=== PATIENT | female | born 1935 | race Caucasian/White ===

== ENCOUNTER 2017-08-26 12:49 | Emergency (ER) | payer MEDICARE, MEDICAID, SELFPAY ==
[2017-08-26 12:50] VITALS: BP 94/57; PULSE 92; RESP 14; TEMP 36.9; O2SAT 96; BMI 17.4
--- NOTE | 2017-08-26 13:06 | CT_ITS ---
STUDY: CT BRAIN WITHOUT CONTRAST REASON FOR EXAM: Female, 82 years old. Altered mental status RADIATION DOSAGE (If Supplied By Facility): CTDIvol = ( 44.99 ) mGy, DLP = ( 762.36 ) mGycm TECHNIQUE: Transaxial CT imaging of the brain was performed without administration of intravenous contrast material. Individualized dose optimization techniques were used for this CT. COMPARISON: None. FINDINGS: No evidence for shift of midline structures, mass effect or compression of ventricles noted. No acute intra-axial or extra-axial hemorrhage is seen. No abnormal intracranial fluid collections identified. Asymmetric low-attenuation in the left periventricular and subcortical white matter which are nonspecific in imaging appearance however likely related with chronic small vessel disease or asymmetric narrowing of the carotid artery. Chronic right cerebellar infarct. Chronic small vessel disease. No intra or extra-axial hemorrhage. Mild ventriculomegaly with cerebral fine loss. Vascular calcifications. Opacification of the left sphenoid sinus. Mucoperiosteal thickening of the maxillary sinuses as well as the ethmoid vessels also seen. Findings likely related with chronic sinusitis. IMPRESSION: No evidence for acute intracranial hemorrhage, mass effect or acute large territory infarcts. Chronic small vessel disease. Chronic right cerebellar infarct Electronically Signed: Yehuda Adams, at 14:40 EDT Tel , Service support , CT/Brain/Head without Contrast
--- NOTE | 2017-08-26 13:06 | EKG12_ITS ---
Test Reason : NEURO SX Blood Pressure : / mmHG Vent. Rate : 078 BPM Atrial Rate : 080 BPM P-R Int : 000 ms QRS Dur : 068 ms QT Int : 380 ms P-R-T Axes : 000 001 030 degrees QTc Int : 433 ms Atrial fibrillation with premature ventricular or aberrantly conducted complexes Low voltage QRS (LIMB LEADS) Poor R wave progression Abnormal ECG Confirmed by LADY BLOUNT, JOEL ([id number]), supervising film or videotape editor TIERRA MALDONADO ([id number]) on 08/28/2017 2:58:51 PM Referred By: JOSE ALBERTO Confirmed By:JOEL NARAYANAN MD
--- NOTE | 2017-08-26 13:10 | RAD_ITS ---
STUDY: X-RAY CHEST REASON FOR EXAM: Female, 82 years old. Shortness of breath TECHNIQUE: Single view of the chest was obtained COMPARISON: None. FINDINGS: No lung consolidation or pneumothorax. Cardiac size is enlarged. Mild bilateral perihilar streaky opacities with hilar enlargement noted may relate with pulmonary edema. No definite pneumothorax. Subtle airspace disease in the left lower lobe retrocardiac region suspected. Tracheobronchial calcifications. Calcifications of the aortic knob. IMPRESSION: Cardiomegaly with bilateral pulmonary vascular congestion and airspace opacities in the left lower lobe retrocardiac region. Subtle nodular appearing airspace opacities in the right lower lobe also seen. Electronically Signed: Yehuda Adams, at 13:24 EDT Tel , Service support , RAD/Chest 1 View (Portable)
--- NOTE | 2017-08-26 13:41 | ED.DCSUM_ITS ---
- ER Visit Summary Date of Service: 08/26/17 Chief Complaint: [] Difficulty with speech while visiting with family History of Present Illness: The patient is a 82 F [] history of stroke this past February the cause a fascia to where she has trouble generally verbalizing any type speech pattern, she was walking around apparently what sounds like a garden when she could not speak to her family she states that her down the symptoms resolved and they recurred and she was brought to the emergency department. The inability to speak lasted for a very short period of time, the family did not notice anything else except may be some facial droop on the left , but the patient has no complaints her speech is back to her baseline where basically she struggles to verbalize she does make sounds and if you listen closely can understand part of what she says and that is her baseline the patient denies headache chest pain abdominal pain #6 paresthesias the patient was not cognizant of this inability to verbalize at this time she has no complaints her health status has been stable recently Physical Examination: [] Her blood pressures about 100/80 she is in no distress she is looking about her speech again she is able to verbalize she makes words her speech is garbled with close understand you can hear her say her name this is her baseline there is no airway compromise stridor or drooling cranial nerves appear otherwise intact her neck is supple the lungs are clear the heart tones are normal the abdomen soft nontender she has full range of motion of all 4 extremities normal strength her NIH would be limited only because of the dense a fascia that she has above but otherwise no new abnormalities Test Results: [] Emergency Department Course and Treatment: [] CT labs these are generally unremarkable nothing acute see those full reports the chest x-ray shows what appears to be pulmonary congestion versus some atelectasis versus pneumonia, the white count 13,000 she remains awake and alert she indicates she is not short of breath she is not coughing the family reports she has chronic pulmonary conditions that sometimes makes her breathe heavy but they have not noticed any signs of pneumonia the family asked her directly if she felt ill if she wanted to be been to the hospital if she felt like she was short of breath she denied all that saying she wanted to go back to the nursing center she did not wish to be admitted I we explained the concept of an occult process that was unidentifiable at this point time the family understood the home nurses watch her and have her return for change in symptoms I will prescribe her Levaquin antibiotic as a [id number] prescription to be started should she develop any pulmonary symptoms of any kind but otherwise he will follow up with the physicians at the nursing center Treatment Plan: [] Disposition: [] Home stable patient declined admission Impression: [] Transient difficulty speaking resolved history of TIA, and chronic lung condition unspecified This note was generated with [employer] dictation software. It may contain incorrect words, spelling, and punctuation that were not noted in review of the chart prior to signing ED Disposition - Plan for ED Patient: Chief Complaint: Neuro S/Sx Referrals: Lanre Rodriguez [Primary Care Provider] -
[2017-08-26 13:50] LABS: Absolute Lymphocyte Count 1.85 X10^3/ul (0.83-4.51); Absolute Neutrophil Count 9.3 X10^3/uL (2.0-7.7); Basophil# 0.07 X10^3/uL; Basophil% 0.5 % (0-1); Eosinophil# 0.71 X10^3/uL; Eosinophils% 5.4 % (0-5); Hematocrit 33.9 % (37-47); Hemoglobin 10.8 g/dl (12.0-15.0); Lymphocyte # 1.85 X10^3/ul (4.0); Mean Corp Hgb Conc 31.9 g/gl (32-36); Mean Corpuscular Hgb 31.6 pg (27.0-32.0); Mean Corpuscular Volume 99.1 fL (81-99); Monocyte# 1.28 X10^3/uL; Monocyte% 9.7 % (0-10); Neutrophil # 9.25 X10^3/uL (2.7-7.7); Neutrophil % 69.9 % (47-70); POSITIVE COUNT NO; POSITIVE DIFFERENTIAL NO; POSITIVE MORPHOLOGY NO; Platelet Count 230 K/mm3 (150-450); RBC Distribution Width CV 14.7 % (11.6-14.6); Red Blood Count 3.42 M/mm3 (4.2-5.4); White Blood Count 13.2 K/mm3 (4.4-11.0)
[2017-08-26 13:58] VITALS: BP 97/70; PULSE 79; RESP 18; O2SAT 97
--- NOTE | 2017-08-26 13:58 | ED.RN ---
PER SON HAD DROOLING AND UNABLE TO TALK 2 EPISODES TODAY. RESOLVED PRIOR TO ARRIVAL. PT IS BASELINE ON ARRIVAL.
[2017-08-26 14:04] LABS: AST(SGOT) 20 U/L (15-37); Alanine Aminotransfer ALT/SGPT 9 U/L (13-56); Alkaline Phosphatase 100 U/L (45-117); Anion Gap 6 (5-15); BUN 16 mg/dL (7-18); BUN/Creat Ratio 13.4 RATIO (10-20); Bilirubin, Direct 0.08 mg/dL (0.00-0.30); Calcium,Total 9.7 mg/dL (8.5-10.1); Chloride 107 mmol/L (98-107); Creatinine, Serum 1.19 mg/dL (0.55-1.02); EST Glomerular Filtration Rate 46 mL/min (>60); Est Glom Filt Rate - Afr Amer 56 mL/min (>60); Estimated Creatinine Clearance 24.95 ml/min; Globulin 3.6 g/dL (2.2-4.2); Glucose 100 mg/dL (74-106); Lipase 125 U/L (73-393); Potassium 4.7 mmol/L (3.5-5.1); Protein, Total 6.6 g/dL (6.4-8.2); Sodium Level 139 mmol/L (136-145)
[2017-08-26 15:22] LABS: Mucous, Urine 0 SEEN /hpf (<or=2+); Red Blood Cells-Urine 0 SEEN /hpf (0-5); Squamous Epithelial Cells - UA 0 SEEN /hpf (5-10)
[2017-08-26 15:23] VITALS: BP 88/50; PULSE 82; RESP 18; O2SAT 96
[2017-08-26 15:27] LABS: Color, Urine Yellow (Yellow); Glucose, Dipstick Normal (Normal); Ketone-Dipstick Negative (Negative); Leukocyte Esterase-Dipstick 25 /ul (Negative); Nitrite-Dipstick Negative (Negative); Occult Blood-Urine Negative /ul (Negative); Protein-Dipstick Negative (Negative); Urine Bilirubin Dipstick Negative (Negative); Urine Clarity Clear (Clear); Urine Urobilinogen Normal (Normal); Urine pH 6.5 (5.0 - 8.0)
[2017-08-26 15:34] LABS: Bacteria 4+ /hpf (None Seen); White Blood Cells 0-5 SEEN /hpf (0-5)
[2017-08-26 16:03] VITALS: BP 108/71; PULSE 78; RESP 20; O2SAT 93
--- NOTE | 2017-08-26 16:15 | ED.DEP ---
ED Disposition - Plan for ED Patient: Chief Complaint: Neuro S/Sx Instructions: ED Transient Ischemic Attack Prescriptions: Albuterol Inhaler [Ventolin Hfa] 1 - 2 puff INHALATION Q4H PRN PRN #1 inhaler PRN Reason: Wheezing levoFLOXacin tablet [Levaquin] 500 mg PO DAILY #7 tab Referrals: Lanre Rodriguez [Primary Care Provider] -
[2017-08-26 16:37] VITALS: PULSE 75; RESP 18
[2017-08-26] MEDS: Ipratropium/Albuterol Sulfate 3 ML AMPUL.NEB INHALATION (16:37)
[2017-08-26 17:05] VITALS: BP 114/79; PULSE 76; RESP 18; TEMP 36.2; O2SAT 97
== END 2017-08-26 17:06 | disposition home or self-care (01) ==
PROVIDERS: Emergency Provider Emergency Medicine; Family Provider Family Medicine; PCP Family Medicine
DX: F80.9 Developmental disorder of speech and language, unspecified (principal); Z86.73 Personal history of transient ischemic attack (TIA), and cerebral infarction without residual deficits
CPT/HCPCS: 70450; 71045; 80048; 80076; 81001; 83690; 84484; 85025; 93005; 94640; 99284; J7030; J7040; P9612; A4216

== ENCOUNTER → 2020-10-18 05:00 | Outpatient (REF) | payer MEDICARE, MEDICAID, SELFPAY ==
[2020-10-18 09:29] LABS: International Normalized Ratio 2.2; Prothrombin Time (Protime)PT. 23.3 SECONDS (11.7-14.9)
== END ==
LOC: OLS.SWAL 05:00
PROVIDERS: PCP Family Medicine
DX: I48.91 Unspecified atrial fibrillation (principal)
CPT/HCPCS: 36415; 85610

== ENCOUNTER → 2020-10-19 16:25 | Outpatient (CLI) | payer MEDICARE, MEDICAID, SELFPAY ==
--- NOTE | 2020-10-19 16:45 | US_ITS ---
STUDY: Soft tissue neck ULTRASOUND REASON FOR EXAM: Female, 85 years old. R SIDE SUBMANDIBULAR SWELLING TECHNIQUE: Ultrasound evaluation of the soft tissue neck was performed with real-time and static roman-scale imaging. COMPARISON: None. FINDINGS: Multiple longitudinal and transverse ultrasound images of the submandibular glands were obtained. Next Examination the right submandibular gland demonstrates normal size, morphology, and echogenicity without focal mass. However, just superior to the right submandibular gland there is a 1.9 cm echogenic focus with posterior shadowing which may resent calcification. Examination left submandibular gland which is normal size morphology and echogenicity. US/Head/Neck Soft Tissue IMPRESSION: Suspect calcification superior to the right submandibular gland corresponding to the patient''s palpable abnormality. Correlation with CT with contrast is recommended to Electronically Signed: Kranthi Vargas MD at 8:11 EDT Tel , Service support ,
== END ==
PROVIDERS: PCP Nurse Practitioner Primary Care; Referring Provider Nurse Practitioner Primary Care; Visit Provider Nurse Practitioner Primary Care
DX: R22.0 Localized swelling, mass and lump, head (principal)
CPT/HCPCS: 76536

== ENCOUNTER → 2020-11-16 04:00 | Outpatient (REF) | payer MEDICARE, MEDICAID, SELFPAY ==
[2020-11-16 07:36] LABS: INR Fingerstick 2.1; Prothrombin Time Fingerstick 24.4 SEC (11.9-14.4)
== END ==
LOC: OLS.SWAL 04:00
PROVIDERS: PCP Nurse Practitioner Primary Care
DX: I48.91 Unspecified atrial fibrillation (principal)
CPT/HCPCS: 36416; 85610

== ENCOUNTER → 2020-12-14 05:00 | Outpatient (REF) | payer MEDICARE, MEDICAID, SELFPAY ==
[2020-12-14 07:15] LABS: INR Fingerstick 2.1; Prothrombin Time Fingerstick 24.4 SEC (11.9-14.4)
== END ==
LOC: OLS.SWAL 05:00
PROVIDERS: PCP Nurse Practitioner Primary Care
DX: I48.91 Unspecified atrial fibrillation (principal)
CPT/HCPCS: 36416; 85610

== ENCOUNTER 2021-01-05 16:32 | Emergency (ER) | payer MEDICARE, MEDICAID, SELFPAY ==
[2021-01-05 16:41] VITALS: BP 94/57; PULSE 90; RESP 16; TEMP 37.1; O2SAT 97; BMI 19.5
[2021-01-05 16:44] VITALS: BP 103/50; PULSE 89; RESP 16; TEMP 37.1; O2SAT 98
[2021-01-05 16:45] VITALS: BP 103/50; PULSE 89; RESP 16; TEMP 37.1; O2SAT 98
--- NOTE | 2021-01-05 17:12 | EKG12_ITS ---
Test Reason : Blood Pressure : / mmHG Vent. Rate : 085 BPM Atrial Rate : 115 BPM P-R Int : 000 ms QRS Dur : 068 ms QT Int : 378 ms P-R-T Axes : 000 021 054 degrees QTc Int : 449 ms Atrial fibrillation Low voltage QRS (Limb Leads) Septal infarct , age undetermined Abnormal ECG Confirmed by LADY BLOUNT, JOEL ([id number]), fan mail editor DEA MARTINEZ ([id number]) on 01/10/2021 10:19:41 AM Referred By: NICKI Confirmed By:JOEL NARAYANAN MD
--- NOTE | 2021-01-05 17:12 | CT_ITS ---
STUDY: CT SOFT TISSUE NECK WITH CONTRAST REASON FOR EXAM: Female, 85 years old. Pain. Swelling of the right jaw. Patient on antibiotics. RADIATION DOSAGE (If Supplied By Facility): CTDIvol = ( 9.13 ) mGy, DLP = ( 241.69 ) mGycm TECHNIQUE: The patient was scanned in a multi-detector CT scanner. High resolution transaxial imaging was performed following intravenous administration of IV 75mL Isovue-370. Sagittal and coronal images were reconstructed. Individualized dose optimization techniques were used for this CT. COMPARISON: None. FINDINGS: Normal bilateral parotid glands. Normal bilateral avionics electrical engineer spaces. Normal bilateral parapharyngeal spaces. Normal bilateral carotid spaces. Normal bilateral sublingual and submandibular glands and spaces. Mild thickening and stranding in the subcutaneous fat over the right mandibular angle. There is a comminuted fracture through the mandible in the expected position of the third molar with minimal displacement. There is no dislocation of the right TMJ. Mandible is otherwise unremarkable. Normal visualized nasopharynx. Normal retropharyngeal space. Normal perivertebral space. Normal visualized bilateral faucial tonsils. The visualized tongue, tongue base and oropharynx are normal. The visualized cervical lymph nodes (levels I-) are within normal size limits, and maintain normal morphology. There is no demonstrated solid or cystic mass lesion. There is no abnormal contrast enhancement. Normal epiglottis, bilateral vallecula and hypopharynx. The pre-epiglottic and paraglottic adipose spaces are normal. Normal visualized bilateral piriform sinuses, aryepiglottic folds, vocal cords, and arytenoid-cricoid articulations. Normal subglottic trachea. Normal bilateral lobes of the thyroid gland. Normal visualized pulmonary apices. Opacification of the sphenoid sinus. Degenerative changes cervical spine. CT/Soft Tissue Neck WITH Contrast IMPRESSION: 1. Comminuted fracture of the left mandible in the expected position of the third molar. There is associated stranding and prominence of the adjacent subcutaneous fat. This may be pathologic and related to bone infraction. 2. Otherwise normal soft tissues of the neck. N.B. : The above Results were Read Back by Barney Claros DO to Ebonie Carter MD, and understanding confirmed on 01/05/2021 19:16:27 (ET). Electronically Signed: Barney Claros DO at 19:17 EDT Tel [phone], Service support ,
--- NOTE | 2021-01-05 17:17 | EDS_ITS ---
HPI History of Present Illness Chief Complaint: Other, Pain/Inj Informant: patient and family Narrative Narrative: Patient is an 85-year-old female with history of atrial fibrillation, hypothyroid, hyperlipidemia, stroke with subsequent aphasia presenting with swel ling and infection of her right lower jaw. Patient's been having ongoing issues for the past few months and has been [place] [facility] [place] patient has been getting worse despite being on oral antibiotics and was told to come to the ER for IV antibiotics. Patient is having increased pain. Her son states normally when she is on a course of antibiotics the swelling and pain will get better but this time its not. No report of any fevers. Patient is a resident of [facility]. She had decreased oral intake today which is new. [facility] Medical History (Updated 01/06/21 @ 11:[address] Ebonie Carter, ) Anorexia Aphasia Atrial fibrillation Chest pain, unspecified CVA (cerebral vascular accident) Dysphagia Edema, unspecified Heart failure Hemiplegia affecting right dominant side HTN (hypertension) Hypothyroidism Muscle weakness (generalized) Old myocardial infarction Osteoarthritis Pure hypercholesterolemia Rheumatoid arthritis Takotsubo syndrome TIA (transient ischemic attack) Home Medications albuterol sulfate 1 - 2 puff INHALATION Q4H PRN PRN #1 inhaler 08/26/17 [Rx Last Taken Unknown] aspirin [Adult Aspirin Regimen] 81 mg PO DAILY 08/26/17 [History Last Taken Unknown] atorvastatin 40 mg PO QHS 08/26/17 [History Last Taken Unknown] folic acid 1 mg PO DAILY@0800 08/26/17 [History Last Taken Unknown] leflunomide 20 mg PO MOWEFR 08/26/17 [History Last Taken Unknown] levothyroxine 25 mcg PO DAILY 08/26/17 [History Last Taken Unknown] lisinopril 2.5 mg PO DAILY 08/26/17 [History Last Taken Unknown] methotrexate sodium 15 mg PO Q7D 08/26/17 [History Last Taken Unknown] metoprolol succinate 50 mg PO DAILY 08/26/17 [History Last Taken Unknown] mirtazapine 15 mg PO QHS 08/26/17 [History Last Taken Unknown] warfarin 4 mg PO QODAY 01/05/21 [History Last Taken Unknown] warfarin 4.5 mg PO QODAY 01/05/21 [History Last Taken Unknown] Allergy/AdvReac Type Severity Reaction Status Date / Time amiodarone Allergy Unknown Verified 01/05/21 16:55 Social History Smoking Status: Never smoker ROS ROS ED Constitutional Constitutional ED: Denies chills or fever(s) Eyes Eyes: Denies change in vision ENT ENT ED: Reports other Details: right jaw pain, swelling ; Denies ear pain or rhinorrhea Cardiovascular Cardiovascular: Denies chest pain or palpitations Respiratory/Chest Respiratory/Chest: Denies cough or dyspnea Gastrointestinal Gastrointestinal: Denies abdominal pain Musculoskeletal Musculoskeletal: Denies arthralgias or myalgias Integumentary Denies rash Neurologic Neurologic: Reports weakness and other Details: Chronic right-sided weakness and aphasia from prior stroke ; Denies headache(s) EXAM Physical Exam Const Vital Signs: 01/05/21 16:41 01/05/21 16:44 01/05/21 16:45 Temperature 98.7 F 98.7 F 98.7 F Temperature Source Temporal Temporal Temporal Pulse Rate 90 89 89 Respiratory Rate 16 16 16 Blood Pressure 94/57 L 103/50 L 103/50 L Blood Pressure Mean 69 67 67 Pulse Ox 97 98 98 Oxygen Delivery Method Room Air Room Air Room Air 01/05/21 17:32 01/05/21 17:44 01/05/21 20:17 Temperature 98 F 98 F 97 F L Temperature Source Temporal Temporal Temporal Pulse Rate 99 86 81 Respiratory Rate 18 16 18 Blood Pressure 118/93 H 105/59 L 104/59 L Blood Pressure Mean 101 74 74 Pulse Ox 98 99 94 Oxygen Delivery Method Room Air Room Air Positive well nourished and well developed General Appearance ED: well developed and NAD HEENT Reports TM's clear and moist mucous membranes HEENT Narrative: Multiple missing teeth. Tenderness palpation of the right mandible near where her third molar would be. There is no tooth there. There is no associated abscess appreciated. Sublingual mucosa is soft. Patient has soft tissue swelling at the angle of her mandible on the right. Uvula is midline. Negative for tenderness Tympanic Membrane ED: Yes TM's clear Eyes PERRL and EOMs intact bilaterally Neck no lymphadenopathy, supple and no JVD Chest Wall inspection of chest normal Resp normal respiratory effort and clear to auscultation bilaterally Cardio regular rate and no murmurs Rhythm: abnormal rhythm irregularly irregular GI normal to inspection, nondistended, normoactive bowel sounds Extremity normal to inspection Neuro Neuro Narrative: Patient has a weak voice and has difficulty speaking as well as right-sided weakness. Per chart review and family, all this is chronic Sensorium / Orientation: alert Psych mental status grossly normal Skin no rashes or lesions noted and no wounds MDM MDM MDM Narrative Medical decision making narrative: Patient presents with her son from assisted living for worsening swelling and pain of her right lower jaw. SHe has recurrent infection and has seen OMFS for this. Given her worsening symptoms despite oral antibiotic therapy, it was recommenced to come to the ED for further evaluation. No airway compromise on exam. Discussed with Dr. 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 Clinically patient is well appearing with no vital signs consistent with sepsis. CT of the neck with contrast shows fracture on the right mandible, in the area of pain and swelling. I suspect this is pathologic given her suspected pathology and no report of trauma. Results are discussed with Dr. Chin, who will follow up outpatient. No new intervention indicated and patient is likely not a surgical candidate for repair. As she has adequate pain control with Tylenol she will be discharged back home. She does not require IV antibiotics. Patient and Son are agreeable with this plan of care. Lab Data Attestation: I reviewed the patient's lab results. Lab results narrative: Creatinine is elevated but at patient's baseline. Supratherapeutic INR- patient instructed to follow up with PCP for recommendations and hold coumadin tonight. Suspect this is secondary to recent antibiotics. Labs: Laboratory Results - last 24 hr 01/05/21 01/05/21 01/05/21 17:20 17:20 17:20 WBC 9.8 RBC 4.08 L Hgb 12.7 Hct 41.8 MCV 102.5 H MCH 31.1 MCHC 30.4 L RDW Std Deviation 57.3 H RDW Coeff of Eliseo 15.9 H Plt Count 198 MPV 14.9 H Immature Gran % (Auto) 0.600 Neut % (Auto) 75.6 H Lymph % (Auto) 11.3 L Craven % (Auto) 10.3 H Eos % (Auto) 1.7 Baso % (Auto) 0.5 Absolute Neuts (auto) 7.4 Absolute Lymphs (auto) 1.10 Nucleated RBC % 0 PT 34.0 H INR 3.5 APTT 41.9 H Sodium 137 Potassium 4.7 Chloride 104 Carbon Dioxide 28.0 Anion Gap 5 BUN 29 H Creatinine 1.27 H Estim Creat Clear Calc 21.63 Est GFR (MDRD) Af Amer 51 L Est GFR (MDRD) Non-Af 43 L BUN/Creatinine Ratio 22.8 H Glucose 123 H Lactic Acid Calcium 9.0 Total Bilirubin 0.50 AST 33 ALT 28 Alkaline Phosphatase 105 Total Protein 7.9 Albumin 3.7 Globulin 4.2 Albumin/Globulin Ratio 0.9 01/05/21 17:20 WBC RBC Hgb Hct MCV MCH MCHC RDW Std Deviation RDW Coeff of Eliseo Plt Count MPV Immature Gran % (Auto) Neut % (Auto) Lymph % (Auto) Craven % (Auto) Eos % (Auto) Baso % (Auto) Absolute Neuts (auto) Absolute Lymphs (auto) Nucleated RBC % PT INR APTT Sodium Potassium Chloride Carbon Dioxide Anion Gap BUN Creatinine Estim Creat Clear Calc Est GFR (MDRD) Af Amer Est GFR (MDRD) Non-Af BUN/Creatinine Ratio Glucose Lactic Acid 1.7 Calcium Total Bilirubin AST ALT Alkaline Phosphatase Total Protein Albumin Globulin Albumin/Globulin Ratio Radiography Diagnostic Testing: Radiology Impression Soft Tissue Neck CT 01/05/21 17:12 IMPRESSION: 1. Comminuted fracture of the left mandible in the expected position of the third molar. There is associated stranding and prominence of the adjacent subcutaneous fat. This may be pathologic and related to bone infraction. 2. Otherwise normal soft tissues of the neck. N.B. : The above Results were Read Back by Barney Claros DO to Ebonie Carter MD, and understanding confirmed on 01/05/2021 19:16:27 (ET). Electronically Signed: Barney Claros DO at 19:17 EDT Tel [phone], Service support , ADDENDUM: 01/05/211923 IMPRESSION: 1. Comminuted fracture of the left mandible in the expected position of the third molar. There is associated stranding and prominence of the adjacent subcutaneous fat. This may be pathologic and related to bone infraction. 2. Otherwise normal soft tissues of the neck. N.B. : The above Results were Read Back by Barney Claros DO to Ebonie Carter MD, and understanding confirmed on 01/05/2021 19:16:27 (ET). Electronically Signed: Barney Claros DO at 19:17 EDT Tel [phone], Service support , ADDENDUM: 01/05/212044 IMPRESSION: 1. Comminuted fracture of the left mandible in the expected position of the third molar. There is associated stranding and prominence of the adjacent subcutaneous fat. This may be pathologic and related to bone infraction. 2. Otherwise normal soft tissues of the neck. N.B. : The above Results were Read Back by Barney Claros DO to Ebonie Carter MD, and understanding confirmed on 01/05/2021 19:16:27 (ET). Electronically Signed: Barney Claros DO at 19:17 EDT Tel [phone], Service support , ADDENDUM: 01/05/212051 IMPRESSION: 1. Comminuted fracture of the RIGHT mandible in the expected position of the third molar. There is associated stranding and prominence of the adjacent subcutaneous fat. This may be pathologic and related to bone infraction. 2. Otherwise normal soft tissues of the neck. Electronically Signed: Barney Claros DO at 20:45 EDT Tel [phone], Service support , N.B. : The above Results were Read Back by Barney Claros DO to Ebonie Carter MD, and understanding confirmed on 01/05/2021 19:16:27 (ET). Rhythm Strip Rhythm Strip: A-fib Rate: 85 Ectopy: None EKG Initial EKG: Attestation: I personally reviewed and interpreted this EKG as follows: Interpretation: Atrial Fibrillation Comments: Atrial fibrillation at a rate of 85 Normal axis Normal QRS and QTc Normal ST segments No change compared to prior EKG on 08/26/2017 except patient no longer has PVCs Discharge Plan Triage Chief Complaint: Other, Pain/Inj ED Provider: Ebonie Carter Dx/Rx/DC Orders Clinical Impression: Fracture of right side of mandibular body, Supratherapeutic INR Instructions: ED Jaw Fracture Prescriptions: No Action atorvastatin 40 MG tablet 40 mg PO QHS RF: 0 aspirin [Adult Aspirin Regimen] 81 MG tablet,delayed release (DR/EC) 81 mg PO DAILY RF: 0 leflunomide 20 MG tablet 20 mg PO MOWEFR RF: 0 folic acid 1 MG tablet 1 mg PO DAILY@0800 RF: 0 metoprolol succinate 50 MG tablet extended release 24 hr 50 mg PO DAILY RF: 0 levothyroxine 75 MCG tablet 25 mcg PO DAILY RF: 0 methotrexate sodium 2.5 MG tablet 15 mg PO Q7D RF: 0 lisinopril 5 MG tablet 2.5 mg PO DAILY RF: 0 mirtazapine 15 MG tablet 15 mg PO QHS RF: 0 albuterol sulfate 1 INHALER inhaler 1 - 2 puff INHALATION Q4H PRN PRN (Reason: Wheezing) Qty: 1 RF: 0 warfarin 4 mg Tablet 4 mg PO QODAY RF: 0 warfarin 4 mg Tablet 4.5 mg PO QODAY RF: 0 Primary Care Provider: Jose Hough Referrals: Jose Hough MD [Primary Care Provider] - Chadwick Chin DDS [STAFF PHYSICIAN] - Activity Restrictions/Additional Instructions: Continue the course of antibiotics that you are on. There is currently not any sign of infection. Your Coumadin level today is 3.5. This is slightly elevated. Hold your Coumadin tomorrow and call your doctor that manages your Coumadin for further recommendations. It looks like you have poor blood flow to your bone in your jaw which caused a fracture. This is likely was causing the swelling. Dr. Chin will call you tomorrow for further plan of care. Continue Tylenol for pain control. Disposition Disposition: Home, Self Care Discharge Date/Time: 01/05/21 20:18
[2021-01-05 17:32] VITALS: BP 118/93; PULSE 99; RESP 18; TEMP 36.6; O2SAT 98
[2021-01-05 17:44] VITALS: BP 105/59; PULSE 86; RESP 16; TEMP 36.6; O2SAT 99
[2021-01-05 17:53] LABS: Absolute Neutrophil Count 7.4 X10^3/uL (2.0-7.7); Basophil# 0.05 X10^3/uL; Basophil% 0.5 % (0-1); Eosinophil# 0.17 X10^3/uL; Eosinophils% 1.7 % (0-5); Hematocrit 41.8 % (37-47); Hemoglobin 12.7 g/dL (12.0-15.0); Lymphocyte % 11.3 % (19-41); Mean Corp Hgb Conc 30.4 g/dL (32-36); Mean Corpuscular Hgb 31.1 pg (27.0-32.0); Mean Corpuscular Volume 102.5 fL (81-99); Mean Platelet Vol. 14.9 fl (6.2-12.0); Monocyte# 1.01 X10^3/uL; Monocyte% 10.3 % (0-10); NRBC Flagged by Analyzer 0 % (0-5); Neutrophil # 7.37 X10^3/uL (2.7-7.7); Neutrophil % 75.6 % (47-70); Platelet Count 198 K/mm3 (150-450); RBC Distribution Width CV 15.9 % (11.6-14.6); RBC Distribution Width SD 57.3 fl (35.1-43.9); Red Blood Count 4.08 M/mm3 (4.2-5.4); White Blood Count 9.8 K/mm3 (4.4-11.0)
[2021-01-05 18:04] LABS: International Normalized Ratio 3.5; Partial Thromboplast Time 41.9 Seconds (24.1-36.2)
[2021-01-05 18:20] LABS: ALB/GLOB Ratio 0.9 RATIO (0.9-2.4); AST(SGOT) 33 U/L (15-37); Alanine Aminotransfer ALT/SGPT 28 U/L (13-56); Albumin, Serum 3.7 g/dL (3.2-5.0); Alkaline Phosphatase 105 U/L (45-117); Anion Gap 5 (5-15); BUN 29 mg/dL (7-18); BUN/Creat Ratio 22.8 RATIO (10-20); Chloride 104 mmol/L (98-107); Creatinine, Serum 1.27 mg/dL (0.55-1.02); EST Glomerular Filtration Rate 43 mL/min (>60); Est Glom Filt Rate - Afr Amer 51 mL/min (>60); Estimated Creatinine Clearance 21.63 ml/min; Globulin 4.2 g/dL (2.2-4.2); Glucose 123 mg/dL (74-106); Lactic Acid 1.7 mmol/L (0.4-1.9); Potassium 4.7 mmol/L (3.5-5.1); Protein, Total 7.9 g/dL (6.4-8.2); Sodium Level 137 mmol/L (136-145)
[2021-01-05 20:17] VITALS: BP 104/59; PULSE 81; RESP 18; TEMP 36.1; O2SAT 94
== END 2021-01-05 20:18 | disposition home or self-care (01) ==
PROVIDERS: Emergency Provider Emergency Medicine; PCP Family Medicine
DX: S02.601A Fracture of unspecified part of body of right mandible, initial encounter for closed fracture (principal); R79.1 Abnormal coagulation profile; I48.91 Unspecified atrial fibrillation; E03.9 Hypothyroidism, unspecified; E78.5 Hyperlipidemia, unspecified; I63.9 Cerebral infarction, unspecified; I69.320 Aphasia following cerebral infarction; I11.0 Hypertensive heart disease with heart failure; I50.9 Heart failure, unspecified; M06.9 Rheumatoid arthritis, unspecified; M19.90 Unspecified osteoarthritis, unspecified site; Z79.01 Long term (current) use of anticoagulants; Z79.899 Other long term (current) drug therapy; X58.XXXA Exposure to other specified factors, initial encounter; Y93.89 Activity, other specified; Y92.89 Other specified places as the place of occurrence of the external cause; Y99.8 Other external cause status
CPT/HCPCS: 70491; 80053; 83605; 85025; 85610; 85730; 87040; 93005; 99284; Q9967; A4216

== ENCOUNTER → 2021-01-11 05:00 | Outpatient (REF) | payer MEDICARE, MEDICAID, SELFPAY ==
[2021-01-11 06:40] LABS: INR Fingerstick 2.7; Prothrombin Time Fingerstick 29.8 SEC (11.9-14.4)
== END ==
LOC: OLS.SWAL 05:00
PROVIDERS: PCP Family Medicine; Visit Provider Family Medicine
DX: I48.91 Unspecified atrial fibrillation (principal)
CPT/HCPCS: 36416; 85610

== ENCOUNTER 2021-01-18 17:34 | Emergency (ER) | payer MEDICARE, MEDICAID, SELFPAY ==
[2021-01-18 17:37] VITALS: BP 154/84; PULSE 106; RESP 16; TEMP 36.9; O2SAT 98; BMI 18.1
--- NOTE | 2021-01-18 20:28 | EKG12_ITS ---
Test Reason : WEAKNESS Blood Pressure : / mmHG Vent. Rate : 094 BPM Atrial Rate : 100 BPM P-R Int : 000 ms QRS Dur : 070 ms QT Int : 348 ms P-R-T Axes : 000 -16 044 degrees QTc Int : 435 ms Atrial fibrillation Abnormal ECG Confirmed by LADY BLOUNT, JOEL ([id number]), technical editor DEA MARTINEZ ([id number]) on 01/24/2021 12:57:27 PM Referred By: EMILIANA Confirmed By:JOEL NARAYANAN MD
--- NOTE | 2021-01-18 20:28 | RAD_ITS ---
INDICATION: weakness EXAMINATION/TECHNIQUE: X-RAY - XR Chest 1 View COMPARISON: 08/26/2017. FINDINGS: The lungs are clear. Tortuous and calcified thoracic aorta. The heart is enlarged. No pleural effusion or pneumothorax. Degenerative changes of the thoracic spine. RAD/Chest 1 View (Portable) IMPRESSION: No acute radiographic abnormalities. Cardiomegaly. Electronically Signed: Gino Watkins MD at 21:19 EDT Tel , Service support ,
--- NOTE | 2021-01-18 20:29 | CT_ITS ---
STUDY: CT FACIAL BONES WITHOUT CONTRAST REASON FOR EXAM: Female, 85 years old. jaw pain and swelling -- mandible swelling KNOWN RIGHT JAW FX RADIATION DOSAGE (If Supplied By Facility): CTDIvol = ( 29.38 ) mGy, DLP = ( 569.49 ) mGycm TECHNIQUE: The patient was scanned in a multi detector CT scanner. Sagittal and coronal images were reconstructed. Individualized dose optimization techniques were used for this CT. COMPARISON: None. FINDINGS: An acute mildly comminuted fracture is present through the mid body and right side of the mandible with mild displacement and mild to moderate overlying soft tissue swelling. Normal orbital merino and orbital contents. Normal nasal bones and anterior nasal spine. Normal facial bones. Normal visualized paranasal sinuses. CT/Sinus/Facial Bone IMPRESSION: 1. Acute comminuted fracture in the mid body region and right side of the mandible. Electronically Signed: Fred Ramirez MD at 22:57 EDT , Service support ,
--- NOTE | 2021-01-18 20:38 | EX.ED.DYSGE1 ---
HPI History of Present Illness Chief Complaint: Weakness Informant: patient and family Limited: other (Minimally verbal at baseline) Narrative Narrative: Patient is 85-year-old female with history of atrial fibrillation, stroke and right mandibular fracture presenting with worsening pain and swelling of her mandible as well as decreased oral intake and concern for dehydration. Patient was evaluated on 01/05 for worsening pain and swelling of her right lower jaw. 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 She has been following with Dr. Barry [facility]. Patient was discharged with Tylenol as that was adequate for her pain at that time. Since then she has had worsening pain and swelling. Son states now she is really not eating anything and only taking 3 ounces of boost today. She attributes this to the pain in her jaw. Her surgeon did not feel like there is anything more EKG would recommend she probably need to go to a tertiary care center. She was sent to the emergency room here to be stabilized first before this. No other complaints at this time. [facility] Medical History Anorexia Aphasia Atrial fibrillation Chest pain, unspecified CVA (cerebral vascular accident) Dysphagia Edema, unspecified Heart failure Hemiplegia affecting right dominant side HTN (hypertension) Hypothyroidism Muscle weakness (generalized) Old myocardial infarction Osteoarthritis Pure hypercholesterolemia Rheumatoid arthritis Takotsubo syndrome TIA (transient ischemic attack) Home Medications albuterol sulfate 1 - 2 puff INHALATION Q4H PRN PRN #1 inhaler 08/26/17 [Rx Last Taken Unknown] aspirin [Adult Aspirin Regimen] 81 mg PO DAILY 08/26/17 [History Last Taken Unknown] atorvastatin 40 mg PO QHS 08/26/17 [History Last Taken Unknown] folic acid 1 mg PO DAILY@0800 08/26/17 [History Last Taken Unknown] leflunomide 20 mg PO MOWEFR 08/26/17 [History Last Taken Unknown] levothyroxine 25 mcg PO DAILY 08/26/17 [History Last Taken Unknown] lisinopril 2.5 mg PO DAILY 08/26/17 [History Last Taken Unknown] methotrexate sodium 15 mg PO Q7D 08/26/17 [History Last Taken Unknown] metoprolol succinate 50 mg PO DAILY 08/26/17 [History Last Taken Unknown] mirtazapine 15 mg PO QHS 08/26/17 [History Last Taken Unknown] warfarin 4 mg PO QODAY 01/05/21 [History Last Taken Unknown] warfarin 4.5 mg PO QODAY 01/05/21 [History Last Taken Unknown] Allergy/AdvReac Type Severity Reaction Status Date / Time amiodarone Allergy Unknown Verified 01/18/21 17:40 Social History Smoking Status: Never smoker ROS ROS ED Constitutional Constitutional ED: Reports weight loss and other Details: Anorexia ; Denies chills or fever(s) ENT ENT ED: Reports other Details: right lower jaw pain and swelling ; Denies ear pain or rhinorrhea Cardiovascular Cardiovascular: Denies chest pain Respiratory/Chest Respiratory/Chest: Denies dyspnea Gastrointestinal Gastrointestinal: Denies abdominal pain or vomiting Musculoskeletal Musculoskeletal: Denies myalgias Integumentary Denies rash EXAM Physical Exam Const Vital Signs: 01/18/21 17:37 01/18/21 19:41 01/18/21 21:18 Temperature 98.4 F Temperature Source Temporal Pulse Rate 106 H 100 Respiratory Rate 16 25 H Respiratory Effort Labored Respiratory Pattern Normal Blood Pressure 154/84 H 109/59 L Blood Pressure Mean 107 75 Pulse Ox 98 99 Oxygen Delivery Method Room Air Room Air Oxygen Flow Rate (L/min) 01/18/21 22:14 01/18/21 22:16 Temperature 97.8 F Temperature Source Oral Pulse Rate 135 H 105 H Respiratory Rate 21 H Respiratory Effort Respiratory Pattern Blood Pressure 108/71 Blood Pressure Mean 83 Pulse Ox 97 Oxygen Delivery Method Nasal Cannula Oxygen Flow Rate (L/min) 2 Positive well developed General Appearance ED: well developed and NAD HEENT Reports moist mucous membranes HEENT Narrative: Right mandibular swelling and pain. No obvious sublingual swelling. Poor dentition with multiple missing teeth. Tenderness to palpation of the right lower molar, patient does not tolerate further ensure oral exam. tenderness Eyes PERRL and EOMs intact bilaterally Neck supple Chest Wall inspection of chest normal Resp normal respiratory effort and clear to auscultation bilaterally Cardio no murmurs Rate: tachycardic Rhythm: abnormal rhythm GI normal to inspection, nondistended, normoactive bowel sounds Extremity normal to inspection Neuro Neuro Narrative: Patient is aphasic and nods yes or no to most questions. Chronic right-sided weakness Sensorium / Orientation: alert Psych mental status grossly normal Skin no rashes or lesions noted MDM MDM MDM Narrative Medical decision making narrative: Patient is evaluated for decreased oral intake as well as increased confusion and agitation per her son. Patient lives at [facility] in assisted living. Patient has had increased swelling of her right jaw and has a known pathologic fracture there. She now has a new leukocytosis of 15.9. There is no obvious source of infection and I wonder if this could be reactive from her fracture. CT repeated which shows a fracture but there is no comment on any abscess. There is no free air. Patient is given a small dose of morphine for pain control. Patient seemed weak and more agitated with this. While in the ER she does become more irritated and agitated and keeps trying to get out of bed. Her son is at the bedside who does redirect her. She does not have any signs of dehydration on her lab work. She does have a supratherapeutic INR of 4.3. I do not feel that patient is safe to go home to assisted living and her son agrees. I did discuss with the son whether they would want a PEG tube or feeding tube for her with her jaw fracture and poor oral intake. They state that would not want that for her. With this information I did discuss the patient might be candidate for hospice consult. Her older son is agreeable but he is concerned about if his younger brother would not be in agreement. He would like to talk to him in the morning about this. Patient will require social work consult for placement at this time [facility]. Discussed with hospitalist patient's need for admission for failure to thrive and social consult with possible hospice consult if the family decides that in the morning. Patient is given dose of 10 mg IM Geodon while in the emergency room. Patient signed out to night physician pending final disposition. Lab Data Attestation: I reviewed the patient's lab results. Labs: Laboratory Results - last 24 hr 01/18/21 01/18/21 01/18/21 20:22 20:22 20:22 WBC 15.9 H RBC 3.82 L Hgb 11.9 L Hct 37.6 MCV 98.4 MCH 31.2 MCHC 31.6 L RDW Std Deviation 56.4 H RDW Coeff of Eliseo 16.0 H Plt Count 205 MPV 14.3 H Immature Gran % (Auto) 0.800 Neut % (Auto) 85.1 H Lymph % (Auto) 5.8 L [place] % (Auto) 7.4 Eos % (Auto) 0.6 Baso % (Auto) 0.3 Absolute Neuts (auto) 13.5 H Absolute Lymphs (auto) 0.92 Nucleated RBC % 0 PT INR Sodium 136 Potassium 4.4 Chloride 101 Carbon Dioxide 26.0 Anion Gap 9 BUN 26 H Creatinine 1.07 H Estim Creat Clear Calc 25.60 Est GFR (MDRD) Af Amer 63 Est GFR (MDRD) Non-Af 52 L BUN/Creatinine Ratio 24.3 H Glucose 106 Lactic Acid 1.1 Calcium 8.9 Total Bilirubin 0.60 AST 22 ALT 19 Alkaline Phosphatase 111 Troponin I High Sens 19 Total Protein 7.4 Albumin 3.2 Globulin 4.2 Albumin/Globulin Ratio 0.8 L Urine Color Urine Clarity Urine pH Ur Specific [place] Urine Protein Urine Glucose (UA) Urine Ketones Urine Occult Blood Urine Nitrite Urine Bilirubin Urine Urobilinogen Ur Leukocyte Esterase Urine RBC Urine WBC Ur Squamous Epith Cells Urine Bacteria Urine Mucus 01/18/21 01/18/21 20:22 21:06 WBC RBC Hgb Hct MCV MCH MCHC RDW Std Deviation RDW Coeff of Eliseo Plt Count MPV Immature Gran % (Auto) Neut % (Auto) Lymph % (Auto) [place] % (Auto) Eos % (Auto) Baso % (Auto) Absolute Neuts (auto) Absolute Lymphs (auto) Nucleated RBC % PT 40.8 H INR 4.3 H* Sodium Potassium Chloride Carbon Dioxide Anion Gap BUN Creatinine Estim Creat Clear Calc Est GFR (MDRD) Af Amer Est GFR (MDRD) Non-Af BUN/Creatinine Ratio Glucose Lactic Acid Calcium Total Bilirubin AST ALT Alkaline Phosphatase Troponin I High Sens Total Protein Albumin Globulin Albumin/Globulin Ratio Urine Color Yellow Urine Clarity Clear Urine pH 6.0 Ur Specific [place] 1.010 Urine Protein Negative Urine Glucose (UA) Normal Urine Ketones Negative Urine Occult Blood Negative Urine Nitrite Negative Urine Bilirubin Negative Urine Urobilinogen Normal Ur Leukocyte Esterase Negative Urine RBC 0 SEEN Urine WBC 0 SEEN Ur Squamous Epith Cells 0 SEEN Urine Bacteria 0 SEEN Urine Mucus 0 SEEN Radiography Chest X-Ray - ED: 1 View, Read by ED Physician, Read by Radiologist and No Acute Disease Diagnostic Testing: Radiology Impression Chest X-Ray 01/18/21 20:28 IMPRESSION: No acute radiographic abnormalities. Cardiomegaly. Electronically Signed: Gino Watkins MD at 21:19 EDT Tel , Service support , Facial/Sinus 01/18/21 20:29 IMPRESSION: 1. Acute comminuted fracture in the mid body region and right side of the mandible. Electronically Signed: Fred Ramirez MD at 22:57 EDT , Service support , Rhythm Strip Rhythm Strip: A-fib Rate: 94 Ectopy: None EKG Initial EKG: Attestation: I personally reviewed and interpreted this EKG as follows: Comments: Atrial fibrillation at a rate of 94 Normal QRS and normal QTC Normal ST segments No change compared to prior EKG on 01/05/2021 Discharge Plan Triage Chief Complaint: Weakness Other Complaint: Shortness of Breath ED Provider: Ebonie Cartre Dx/Rx/DC Orders Clinical Impression: Supratherapeutic INR, Fracture of right side of mandibular body, Failure to thrive Prescriptions: No Action atorvastatin 40 MG tablet 40 mg PO QHS RF: 0 aspirin [Adult Aspirin Regimen] 81 MG tablet,delayed release (DR/EC) 81 mg PO DAILY RF: 0 leflunomide 20 MG tablet 20 mg PO MOWEFR RF: 0 folic acid 1 MG tablet 1 mg PO DAILY@0800 RF: 0 metoprolol succinate 50 MG tablet extended release 24 hr 50 mg PO DAILY RF: 0 levothyroxine 75 MCG tablet 25 mcg PO DAILY RF: 0 methotrexate sodium 2.5 MG tablet 15 mg PO Q7D RF: 0 lisinopril 5 MG tablet 2.5 mg PO DAILY RF: 0 mirtazapine 15 MG tablet 15 mg PO QHS RF: 0 albuterol sulfate 1 INHALER inhaler 1 - 2 puff INHALATION Q4H PRN PRN (Reason: Wheezing) Qty: 1 RF: 0 warfarin 4 mg Tablet 4 mg PO QODAY RF: 0 warfarin 4 mg Tablet 4.5 mg PO QODAY RF: 0 Primary Care Provider: Jose Hough Referrals: Jose Hough MD [Primary Care Provider] -
[2021-01-18 20:48] LABS: Absolute Lymphocyte Count 0.92 X10^3/uL (0.83-4.51); Absolute Neutrophil Count 13.5 X10^3/uL (2.0-7.7); Basophil# 0.04 X10^3/uL; Basophil% 0.3 % (0-1); Eosinophils% 0.6 % (0-5); Hematocrit 37.6 % (37-47); Hemoglobin 11.9 g/dL (12.0-15.0); Lymphocyte # 0.92 X10^3/ul (0.83-4.51); Lymphocyte % 5.8 % (19-41); Mean Corp Hgb Conc 31.6 g/dL (32-36); Mean Corpuscular Hgb 31.2 pg (27.0-32.0); Mean Corpuscular Volume 98.4 fL (81-99); Mean Platelet Vol. 14.3 fl (6.2-12.0); Monocyte# 1.18 X10^3/uL; Monocyte% 7.4 % (0-10); NRBC Flagged by Analyzer 0 % (0-5); Neutrophil # 13.51 X10^3/uL (2.7-7.7); Neutrophil % 85.1 % (47-70); Platelet Count 205 K/mm3 (150-450); RBC Distribution Width SD 56.4 fl (35.1-43.9); Red Blood Count 3.82 M/mm3 (4.2-5.4); White Blood Count 15.9 K/mm3 (4.4-11.0)
[2021-01-18 21:02] LABS: ALB/GLOB Ratio 0.8 RATIO (0.9-2.4); AST(SGOT) 22 U/L (15-37); Alanine Aminotransfer ALT/SGPT 19 U/L (13-56); Albumin, Serum 3.2 g/dL (3.2-5.0); Alkaline Phosphatase 111 U/L (45-117); Anion Gap 9 (5-15); BUN 26 mg/dL (7-18); BUN/Creat Ratio 24.3 RATIO (10-20); Calcium,Total 8.9 mg/dL (8.5-10.1); Chloride 101 mmol/L (98-107); Creatinine, Serum 1.07 mg/dL (0.55-1.02); EST Glomerular Filtration Rate 52 mL/min (>60); Est Glom Filt Rate - Afr Amer 63 mL/min (>60); Globulin 4.2 g/dL (2.2-4.2); Glucose 106 mg/dL (74-106); Potassium 4.4 mmol/L (3.5-5.1); Protein, Total 7.4 g/dL (6.4-8.2); Sodium Level 136 mmol/L (136-145); Troponin-I HS 19 pg/mL (3.0-54.0)
[2021-01-18 21:03] LABS: Lactic Acid 1.1 mmol/L (0.4-1.9)
[2021-01-18 21:11] LABS: Prothrombin Time (Protime)PT. 40.8 SECONDS (11.7-14.9)
[2021-01-18] MEDS: Morphine 2 MG/ML Syringe IV (21:13)
[2021-01-18] MEDS: 0.9% Normal Saline 1,000 ML 150 ML IV (21:13)
[2021-01-18 21:17] LABS: Bacteria 0 SEEN /hpf (None Seen); Mucous, Urine 0 SEEN /hpf (<or=2+); Red Blood Cells-Urine 0 SEEN /hpf (0-5); Squamous Epithelial Cells - UA 0 SEEN /hpf (5-10); White Blood Cells 0 SEEN /hpf (0-5)
[2021-01-18 21:18] VITALS: BP 109/59; PULSE 100; RESP 25; O2SAT 99
[2021-01-18 21:28] LABS: Color, Urine Yellow (Yellow); Glucose, Dipstick Normal (Normal); Ketone-Dipstick Negative (Negative); Leukocyte Esterase-Dipstick Negative /ul (Negative); Nitrite-Dipstick Negative (Negative); Occult Blood-Urine Negative /ul (Negative); Protein-Dipstick Negative (Negative); Urine Bilirubin Dipstick Negative (Negative); Urine Clarity Clear (Clear); Urine Urobilinogen Normal (Normal)
[2021-01-18 22:14] VITALS: BP 108/71; PULSE 135; RESP 21; TEMP 36.6; O2SAT 97
--- NOTE | 2021-01-18 22:15 | ED.RN ---
patient tearful and upset when pulse up but once calmed down, pulse coming down, will monitor.
[2021-01-18 22:16] VITALS: PULSE 105
[2021-01-18 22:21] LABS: International Normalized Ratio 4.3
[2021-01-19] VITALS (8 sets, daily range): BP systolic 98–141; BP diastolic 40–77; PULSE 74–110; RESP 16–22; TEMP 36.9; O2SAT 94–98
[2021-01-19] MEDS: Ziprasidone IM 20 MG/ML VIAL 10 MG IM (00:44)
--- NOTE | 2021-01-19 11:00 | CM.ED ---
SOCIAL WORK Referral Source: Dr. Meza Reason for Consult: Discharge Planning Discussed case with nursing. Patient from [facility]. Patient has jaw fx and has not been eating or drinking. Patient's two son's Charles and Yobany not in agreement with care for patient- hospice vs surgery. Patient with history of stroke and is nonverbal. Patient's son/TERESITAYobany RUELAS to arrive this afternoon to discuss plan of care/discharge plan. Awaiting son's arrival at this time. Plan: ANIYA Robbins, HEALTH INSURANCE SPECIALIST, RIGGING WORKER
--- NOTE | 2021-01-19 13:28 | CM.ED ---
SOCIAL WORK Patient's son, Yobany Torres here and provided copy of patient's Advanced Directives as the ones on file are patient's . Son requesting once brother, Charles arrives that family meets with this worker to discuss plan of care/discharge plan. Charles to arrive at 3pm. Nursing staff aware. Echo Robbins, ORDNANCE ENGINEERING TECHNICIAN, WORM FARMER
--- NOTE | 2021-01-19 16:00 | CM.ED ---
SOCIAL WORK Family meeting held with son's Yobany and Charles along with Dr. Meza. Patient's son, Charles has a friend who is an oral surgeon through . Dr. Meza sent CAT scan to for surgeon to review. Patient unable to return to [facility] and family requests patient return to custodial side of [facility]. Referral called and faxed to [facility] at this time. Echo Robbins, PLANT ANATOMIST, BOATWRIGHT
--- NOTE | 2021-01-19 16:45 | CM.ED ---
SOCIAL WORK Received call from admissions who reports unable to accept patient tonight as will require approval. Inquired if patient's insurance is waiving precert for placement and informed they are not. Admissions to follow up tomorrow. Will provide handoff to . Staff updated. Plan: Pending acceptance to [facility] Sarkar, PROOFER [employer]ACK [employer]
[2021-01-19] MEDS: Morphine 4 MG/ML Syringe IV (17:00)
[2021-01-19] MEDS: Ondansetron 4 MG/2 ML Vial IV (17:00)
--- NOTE | 2021-01-19 17:40 | CM.ED ---
SOCIAL WORK Received call back from admissions worker from [facility] who informs able to accept patient tonight as patient's insurance is waiving precert. Staff, patient, and family updated. PAS/RR submitted. This worker to fax discharge instructions. Echo Robbins MSW, WOODWIND INSTRUMENTS INSPECTOR
== END 2021-01-19 19:27 | disposition skilled nursing facility (03) ==
LOC: ED 01-19 00:32 → MS3 01-19 17:52 → ED 01-19 18:47
PROVIDERS: Emergency Provider Emergency Medicine; PCP Family Medicine; Visit Provider Family Medicine
DX: R62.7 Adult failure to thrive (principal); M84.48XA Pathological fracture, other site, initial encounter for fracture; R79.1 Abnormal coagulation profile; I48.91 Unspecified atrial fibrillation; I11.9 Hypertensive heart disease without heart failure; E03.9 Hypothyroidism, unspecified; M06.9 Rheumatoid arthritis, unspecified; Z86.73 Personal history of transient ischemic attack (TIA), and cerebral infarction without residual deficits; Z79.01 Long term (current) use of anticoagulants; Z79.899 Other long term (current) drug therapy
CPT/HCPCS: 70486; 71045; 80053; 81001; 83605; 84484; 85025; 85610; 87426; 93005; 96361; 96372; 96374; 96375; 96376; 99285; J7030; A4216; J2405; J3486

== ENCOUNTER 2021-01-20 18:24 | Emergency (ER) | payer MEDICARE, MEDICAID, SELFPAY ==
[2021-01-20 18:26] VITALS: BP 119/66; PULSE 87; RESP 16; TEMP 36.4; O2SAT 97; BMI 17.6
[2021-01-20] MEDS: HYDROcodone Bitartrate/Apap 5/325 Tablet PO (20:40)
--- NOTE | 2021-01-20 20:45 | EDS_ITS ---
HPI History of Present Illness Chief Complaint: General Illness Informant: family and SNF Onset/Context/Timing Onset: Today Narrative Narrative: Patient sent in from [facility] to worsening vital signs. Patient was seen in this emergency room 2 days ago. She is a pathologic fracture of her right mandible making it difficult for her to tolerate p.o. She had been at assisted living but was having symptoms consistent with . It was not felt that she was safe to go back to assisted living. [facility] was [facility] to [facility] yesterday. Per notes sent with the patient, when patient was up with therapy for transfer today they documented that she felt dizzy and weak. Her pulse was 123 and her blood pressure 108/44. There is documentation that the nurse practitioner was called. Labs were ordered along with increase of IV fluid rate and a dose of metoprolol to help control her heart rate. On repeat vital sign checks her blood pressure was noted to be in the 80s. Family states they received a phone call that her vital signs were very bad and they had to make a decision whether to send her to the emergency room or make her hospice. The patient has 2 sons, 1 of which is comfortable with her being made hospice care and the other is not. At this time she is DNR [facility] arrest. EMS states the patient's vital signs of been stable for them. On arrival patient has no complaints and has normal vital signs. Family states that the one son who does not want her to be made hospice had requested she be evaluated and potentially have blood cultures drawn. [facility] Medical History Anorexia Aphasia Atrial fibrillation Chest pain, unspecified CVA (cerebral vascular accident) Dysphagia Edema, unspecified Heart failure Hemiplegia affecting right dominant side HTN (hypertension) Hypothyroidism Muscle weakness (generalized) Old myocardial infarction Osteoarthritis Pure hypercholesterolemia Rheumatoid arthritis Takotsubo syndrome TIA (transient ischemic attack) Home Medications aspirin [Adult Aspirin Regimen] 81 mg PO DAILY 08/26/17 [History Last Taken 01/18/21] atorvastatin 40 mg PO QHS 08/26/17 [History Last Taken 01/17/21] folic acid 1 mg PO DAILY@0800 08/26/17 [History Last Taken 01/18/21] leflunomide 20 mg PO MOWEFR 08/26/17 [History Last Taken 01/17/21] methotrexate sodium 15 mg PO GALLO 08/26/17 [History Last Taken 01/16/21] mirtazapine 15 mg PO QHS 08/26/17 [History Last Taken 01/17/21] warfarin 4 mg PO QODAY 01/05/21 [History Last Taken 01/16/21] warfarin 4.5 mg PO QODAY 01/05/21 [History Last Taken 01/17/21] acetaminophen 650 mg PO Q4H PRN 01/19/21 [History Last Taken 01/18/21] hydrocodone-acetaminophen 1 tab PO Q6H PRN 3 Days #12 tab 01/19/21 [Rx Last Taken Unknown] levothyroxine 25 mcg PO DAILY 01/19/21 [History Last Taken 01/18/21] lisinopril 2.5 mg PO DAILY 01/19/21 [History Last Taken 01/17/21] metoprolol tartrate 25 mg PO BID 01/19/21 [History Last Taken 01/18/21] penicillin V potassium 500 mg PO 4X/DAY #40 tab 01/19/21 [Rx Last Taken Unknown] Allergy/AdvReac Type Severity Reaction Status Date / Time amiodarone Allergy Unknown Verified 01/18/21 17:40 Social History Smoking Status: Never smoker ROS ROS ED Constitutional Constitutional ED: Denies chills or fever(s) ENT ENT ED: Reports other Details: Mandibular pain Cardiovascular Cardiovascular: Denies chest pain Respiratory/Chest Respiratory/Chest: Denies dyspnea Gastrointestinal Gastrointestinal: Reports nausea; Denies abdominal pain Integumentary Denies rash Neurologic Neurologic: Reports weakness Psychiatric Psychiatric: Denies anxiety or depression Allergic/Immunologic Allergic/Immunologic ED: Denies urticaria EXAM Physical Exam Const Vital Signs: 01/20/21 18:26 01/20/21 18:30 Temperature 97.6 F L Temperature Source Temporal Pulse Rate 87 Respiratory Rate 16 Respiratory Effort Normal Non-Labored Respiratory Pattern Normal Blood Pressure 119/66 Blood Pressure Mean 83 Pulse Ox 97 Oxygen Delivery Method Room Air Positive well nourished and well developed General Appearance ED: well developed HEENT HEENT Narrative: Tenderness with mild edema along the right mandible. No overlying skin changes. Chest Wall inspection of chest normal Resp normal respiratory effort and clear to auscultation bilaterally Cardio regular rate and regular rhythm GI normal to inspection, nondistended, normoactive bowel sounds and non-tender Palpation: soft Extremity normal to inspection Neuro Neuro Narrative: Patient has aphasia at baseline. She will nod to answer questions. Sensorium / Orientation: alert MDM MDM MDM Narrative Medical decision making narrative: Family states they were told that patient could not go back to the shelter because they were not able to care for her. Blood work from earlier today is reviewed. White count is up slightly to 16 from 15 previously. Renal function is stable. Urinalysis obtained 2 nights ago is unremarkable with no sign of infection. I spoke with Dr. Guerrier, on-call for Dr. Rodriguez. He has not been made aware of these happenings tonight. He agrees that the patient can go back to the shelter and they should be able to care for her. See patient does not want a feeding tube. I did ask if there would be a potential of giving TPN at the shelter so she has more nutrition. Dr. Rodriguez will address this tomorrow. Patient did have blood cultures drawn here and a dose of her Meridian for pain. Discharge Plan Triage Chief Complaint: General Illness ED Provider: Ivis Tse Dx/Rx/DC Orders Clinical Impression: Transient hypotension, Elevated INR Instructions: ED Low Blood Pressure, All Causes Prescriptions: No Action atorvastatin 40 MG tablet 40 mg PO QHS RF: 0 aspirin [Adult Aspirin Regimen] 81 MG tablet,delayed release (DR/EC) 81 mg PO DAILY RF: 0 leflunomide 20 MG tablet 20 mg PO MOWEFR RF: 0 folic acid 1 MG tablet 1 mg PO DAILY@0800 RF: 0 methotrexate sodium 2.5 MG tablet 15 mg PO GALLO RF: 0 mirtazapine 15 MG tablet 15 mg PO QHS RF: 0 warfarin 4 mg Tablet 4 mg PO QODAY RF: 0 warfarin 4 mg Tablet 4.5 mg PO QODAY RF: 0 acetaminophen 325 mg Tablet 650 mg PO Q4H PRN (Reason: Pain) RF: 0 levothyroxine 25 mcg Tablet 25 mcg PO DAILY RF: 0 lisinopril 2.5 mg Tablet 2.5 mg PO DAILY RF: 0 metoprolol tartrate 25 mg Tablet 25 mg PO BID RF: 0 hydrocodone-acetaminophen 5-325 mg tablet 1 tab PO Q6H PRN (Reason: pain) 3 Days Qty: 12 RF: 0 penicillin V potassium 500 mg tablet 500 mg PO 4X/DAY Qty: 40 RF: 0 Primary Care Provider: Jose Hough Referrals: Jose Hough MD [Primary Care Provider] - Activity Restrictions/Additional Instructions: Hold your Coumadin for the next [address] Rodriguez will be following you closely. They may discuss starting TPN for nutrition. Disposition Disposition: Longterm Facility Discharge Location: [facility] Discharge Date/Time: 01/20/21 21:36
== END 2021-01-20 21:36 | disposition skilled nursing facility (03) ==
PROVIDERS: Emergency Provider Emergency Medicine; PCP Family Medicine
DX: I95.9 Hypotension, unspecified (principal); R79.1 Abnormal coagulation profile; Z66 Do not resuscitate; I48.91 Unspecified atrial fibrillation; I11.9 Hypertensive heart disease without heart failure; E03.9 Hypothyroidism, unspecified; M06.9 Rheumatoid arthritis, unspecified; Z79.01 Long term (current) use of anticoagulants; Z79.899 Other long term (current) drug therapy; Z86.73 Personal history of transient ischemic attack (TIA), and cerebral infarction without residual deficits
CPT/HCPCS: 87040; 99285; A4216